=== PATIENT | male | born 1955 | race Caucasian/White ===

== ENCOUNTER 2017-01-27 06:22 | Day surgery (SDC) | payer OTHER ==
[~2017-01-27] VITALS: Ht 182.9 cm; Wt 106.9 kg
[2017-01-27] MEDS ORDERED: LOSARTAN POTASSIUM PO (07:33)
[2017-01-27] MEDS ORDERED: ASPI-664 PO (07:33)
[2017-01-27] MEDS ORDERED: TAGAMET PO (07:33)
[2017-01-27] MEDS ORDERED: HYDROCHLOROTHIAZIDE PO (07:33)
[2017-01-27] MEDS ORDERED: CHOLESTEROL MED PO (07:33)
[2017-01-27 07:37] VITALS: Ht 182.9 cm; Wt 106.9 kg
--- NOTE | 2017-01-27 08:56 | OPPN ---
Date/Time of Note Date/Time of Note DATE: 01/27/17 TIME: 08:51 Operative Report Preoperative Diagnosis Screening colonoscopy Postoperative Diagnosis 1. Saline lift polypectomy prececal area 1-1/2 cm flat polyp 2. Cold snare polypectomy 7 mm near the hepatic flexure 3. Cold biopsy humanity polyp in the rectum 4. Moderate hemorrhoid 5. Diverticulosis Operation/Procedure Performed 1. Saline lift polypectomy prececal area Cold snare polypectomy hepatic flexure Cold biopsy forceps for the rectal polyp Large internal hemorrhoids Provider: BERNARDO DEL ROSARIO MD Estimated blood loss: none Transfusion Required: no Specimen: none Grafts/Implants: none Complications: no BERNARDO DEL ROSARIO MD Jan 27, 2017 08:55
[2017-01-27] MEDS ORDERED: FENTAnyl 50 MCG/ML VIAL ONE (09:05)
[2017-01-27] MEDS ORDERED: MIDAZOLAM 1 MG/ML 2 ML INJ ONE ×2 (09:05)
[2017-01-27 09:20] VITALS: BP 140/93; RESP 12
--- NOTE | 2017-01-27 09:26 | GILP ---
DATE OF PROCEDURE: 01/27/2017 PROCEDURE PERFORMED: Colonoscopy with a saline lift, polypectomy, cold snare polypectomy and biopsy of polyp in the rectum. INDICATION: The patient is a 61-year-old gentleman undergoing this procedure for screening colonoscopy. The risks of the procedure, related complications, and anesthetic risk, alternatives thoroughly discussed, and informed consent was obtained. DESCRIPTION OF PROCEDURE: The patient was brought to the GI lab, sedated with Versed 4 mg and fentanyl 75 mg. After optimal sedation, scope was passed with much ease into the rectum, advanced through sigmoid, descending, transverse colon all the way into the cecum. Cecum was filled with liquidy stool. Examined the appendiceal orifice and IC valve. There was a polyp seen in the prececal area. This was 1.5 cm in diameter. It was a flat, sessile polyp, 3-4 cc of saline injected submucosally, edema was created and a cold snare polypectomy done. It was a piecemeal polypectomy. The entire polyp was removed and retrieved. While coming out, mucosa was thoroughly inspected. Near the hepatic flexor, there was another diminutive polyp, which was successfully removed by cold snare technique. The patient had diverticula in the right side of the colon and also in the left side of the colon, a large diverticulum seen in the near the hepatic flexure. On retroflexion, there was a diminutive polyp in the rectum, successfully removed by cold biopsy forceps. Moderate-size internal hemorrhoids identified. The scope was straightened out and removed with good patient tolerance. Clarity was good. Cleanliness was adequate. IMPRESSION: 1. Saline lift polypectomy done for a flat sessile polyp, 1.5 cm in diameter in the presacral area. 2. Cold snare polypectomy done for polyp 6-7 mm in diameter near the hepatic flexure. 3. Cold biopsy for a diminutive polyp in the rectum. 4. Moderate-sized hemorrhoids. 5. Diverticulosis, both left side of the colon and the hepatic flexure. PLAN: To review the histopathology of the polyp, stay on a high- fiber diet, and next colonoscopy after 5 years. Dictated By: Estevan Gonzalez MD /monty/ekon /Document#: [id number] CC: Estevan Gonzalez MD; Dylon Lynn MD;*EndCC*
== END 2017-01-27 14:06 | disposition home or self-care (01) ==
LOC: GIL 06:22
PROVIDERS: ATTEND Internal Medicine Gastroenterology
DX: Z12.11 Encounter for screening for malignant neoplasm of colon (principal); K64.8 Other hemorrhoids; E66.01 Morbid (severe) obesity due to excess calories; Z68.37 Body mass index [BMI] 37.0-37.9, adult
CPT/HCPCS: 45378; 88305; J2250; J3010; Z7610